=== PATIENT | female | born 1965 | race Caucasian/White ===

== ENCOUNTER 2018-01-23 13:24 | Inpatient (IN) | payer OTHER ==
[~2018-01-23] VITALS: Ht 165.1 cm; Wt 74.8 kg
[2018-01-23] MEDS ORDERED: ACETAMINOPHEN 325MG TABLET PO STA (14:42)
[2018-01-23] MEDS ORDERED: SODIUM CHLORIDE 0.9% 1000ML BAG (SEPSIS BOLUS) IV ONE (14:45)
[2018-01-23] MEDS ORDERED: CEFTRIAXONE 1 G PREMIX 50 ML IV ONE (15:15)
[2018-01-23] MEDS ORDERED: ONDANSETRON HCL 4MG/2ML INJ IV ONE (15:15)
[2018-01-23] MEDS ORDERED: FENTANYL CITRATE/PF 50MCG/ML 2ML VIAL IV ONE (15:15)
[2018-01-23 15:58] LABS: HEMATOCRIT. 40.6 % (36.0-48.0); HEMOGLOBIN. 13.7 g/dL (12.0-16.0); MEAN CORPUSCULAR HEMOGLOBIN 29.3 pg (28.0-32.0); MEAN CORPUSCULAR VOLUME 86.8 fL (81.0-99.0); MEAN PLATELET VOLUME 8.1 fl (7.4-10.4); PLATELET 202 x1000/uL (130-400); RED BLOOD CELL COUNT 4.68 mill/uL (4.2-5.4); RED CELL DISTRIBUTION WIDTH 13.4 % (11.6-14.6)
[2018-01-23 16:03] LABS: CHLORIDE 95 mEq/L (98-107)
[2018-01-23 16:10] LABS: INR 1.1; PARTIAL THROMBOPLASTIN TIME 40.8 sec (23.4-31.0); PROTHROMBIN TIME 11.4 sec (9.1-11.1)
[2018-01-23 16:17] LABS: PLATELET ESTIMATE NORMAL
[2018-01-23 16:25] LABS: CLARITY URINE TURBID (CLEAR); COLOR URINE ORANGE (YELLOW); KETONES URINE 3+ (NEGATIVE); LEUKOCYTE ESTERASE URINE 2+ (NEGATIVE); NITRITE URINE NEGATIVE (NEGATIVE); OCCULT BLOOD URINE 3+ (NEGATIVE); PROTEIN URINE 3+ (NEGATIVE); SPECIFIC GRAVITY URINE 1.022 (1.005-1.030)
[2018-01-23] MEDS ORDERED: POTASSIUM CHLORIDE 20MEQ TABLET SR PO ONE (17:00)
[2018-01-23 23:00] VITALS: BP 114/66
[2018-01-24] MEDS ORDERED: LEVO50TA8 PO (00:47)
[2018-01-24 06:10] LABS: HEMATOCRIT. 35.3 % (36.0-48.0); MEAN CORPUSCULAR HEMOGLOBIN 29.4 pg (28.0-32.0); MEAN CORPUSCULAR VOLUME 86.3 fL (81.0-99.0); MEAN PLATELET VOLUME 8.6 fl (7.4-10.4); PLATELET 182 x1000/uL (130-400); RED CELL DISTRIBUTION WIDTH 13.8 % (11.6-14.6)
[2018-01-24] MEDS: LEVOTHYROXINE SODIUM 50MCG TABLET PO SCH (06:32)
[2018-01-24 07:13] LABS: CHLORIDE 100 mEq/L (98-107)
[2018-01-24] MEDS: ACETAMINOPHEN 325MG TABLET PO PRN ×2 (07:25→17:08)
[2018-01-24 08:00] VITALS: BP 115/68
[2018-01-24] MEDS ORDERED: SODIUM CHLORIDE 0.9% 1,000 ML IV SCH (08:00)
[2018-01-24] MEDS ORDERED: POTASSIUM CHLORIDE 20MEQ TABLET SR PO SCH (08:00)
[2018-01-24] MEDS: ENOXAPARIN 40MG/0.4ML SYR SUBCUT SCH (08:46)
[2018-01-24 12:00] VITALS: BP 105/63
[2018-01-24 14:41] LABS: PLATELET ESTIMATE NORMAL
[2018-01-24] MEDS ORDERED: KETOROLAC 60MG/2ML VIAL IM PRN (15:00)
[2018-01-24] MEDS: DEXT 5%/0.45% NACL 1000ML 1,000 ML IV SCH ×2 (15:51→23:00)
[2018-01-24 16:00] VITALS: BP 113/65
[2018-01-24] MEDS: CEFTRIAXONE 1 G PREMIX 50 ML IV SCH (17:08)
[2018-01-25] VITALS: BP 120/66
[2018-01-25 04:00] VITALS: BP 118/68
[2018-01-25 06:29] LABS: BASOPHILS % 0.2 % (0.0-2.0); EOSINOPHILS % 0.1 % (0.0-5.0); HEMATOCRIT. 33.2 % (36.0-48.0); HEMOGLOBIN. 11.4 g/dL (12.0-16.0); LYMPHOCYTES % 9.2 % (20.0-50.0); MEAN CORPUSCULAR HEMOGLOBIN 29.5 pg (28.0-32.0); MEAN CORPUSCULAR VOLUME 86.3 fL (81.0-99.0); MEAN PLATELET VOLUME 7.8 fl (7.4-10.4); MONOCYTES % 12.7 % (2.0-8.0); NEUTROPHILS % 77.8 % (40.0-76.0); PLATELET 175 x1000/uL (130-400); RED BLOOD CELL COUNT 3.85 mill/uL (4.2-5.4); RED CELL DISTRIBUTION WIDTH 13.7 % (11.6-14.6)
[2018-01-25] MEDS: LEVOTHYROXINE SODIUM 50MCG TABLET PO SCH (07:35)
[2018-01-25] MEDS: DEXT 5%/0.45% NACL 1000ML 1,000 ML IV SCH ×2 (07:35→14:34)
[2018-01-25 08:00] VITALS: BP 123/71
[2018-01-25] MEDS ORDERED: INFLUENZA VIRUS VACCINE(AFLURIA) 0.5ML SYR IM ONE (09:00)
[2018-01-25 10:27] LABS: CHLORIDE 101 mEq/L (98-107)
[2018-01-25] MEDS: ENOXAPARIN 40MG/0.4ML SYR SUBCUT SCH (11:25)
[2018-01-25] MEDS: ACETAMINOPHEN 325MG TABLET PO PRN ×2 (11:26→19:52)
[2018-01-25 12:00] VITALS: BP 112/66
[2018-01-25 16:00] VITALS: BP 108/69
[2018-01-25] MEDS ORDERED: POTASSIUM CHLORIDE 20MEQ TABLET SR PO NR (16:30)
[2018-01-25] MEDS: CEFTRIAXONE 1 G PREMIX 50 ML IV SCH (16:40)
[2018-01-25 20:00] VITALS: BP 126/69
[2018-01-25 20:41] LABS: BASOPHILS % 0.3 % (0.0-2.0); EOSINOPHILS % 0.5 % (0.0-5.0); HEMATOCRIT. 33.9 % (36.0-48.0); HEMOGLOBIN. 11.3 g/dL (12.0-16.0); LYMPHOCYTES % 12.4 % (20.0-50.0); MEAN CORPUSCULAR HEMOGLOBIN 29.2 pg (28.0-32.0); MEAN CORPUSCULAR VOLUME 87.1 fL (81.0-99.0); MEAN PLATELET VOLUME 7.6 fl (7.4-10.4); MONOCYTES % 12.2 % (2.0-8.0); NEUTROPHILS % 74.6 % (40.0-76.0); PLATELET 197 x1000/uL (130-400); RED BLOOD CELL COUNT 3.89 mill/uL (4.2-5.4); RED CELL DISTRIBUTION WIDTH 13.6 % (11.6-14.6)
[2018-01-26] VITALS (7 sets, daily range): BP systolic 111–122; BP diastolic 66–75
[2018-01-26] MEDS: LEVOTHYROXINE SODIUM 50MCG TABLET PO SCH (05:39)
[2018-01-26 06:06] LABS: CHLORIDE 100 mEq/L (98-107)
[2018-01-26] MEDS: ENOXAPARIN 40MG/0.4ML SYR SUBCUT SCH (08:45)
[2018-01-26] MEDS: CEFTRIAXONE 1 G PREMIX 50 ML IV SCH (16:17)
== END 2018-01-26 20:30 | disposition home or self-care (01) | DRG 720 ==
LOC: ER 13:24 → EDBEDREQ 16:34 → 6EST 17:31 → EDBEDREQTM 17:37 → EDBEDREQ 17:37 → EDBEDREQTM 17:51 → EDBEDREQ 17:51 → ENRESERV 19:57
PROVIDERS: ADMIT Internal Medicine; ATTEND Internal Medicine
DX: A41.9 Sepsis, unspecified organism (principal); E87.8 Other disorders of electrolyte and fluid balance, not elsewhere classified; E44.1 Mild protein-calorie malnutrition; E83.51 Hypocalcemia; E87.1 Hypo-osmolality and hyponatremia; N10 Acute pyelonephritis; E87.6 Hypokalemia; E78.00 Pure hypercholesterolemia, unspecified; E03.9 Hypothyroidism, unspecified; I25.10 Atherosclerotic heart disease of native coronary artery without angina pectoris; E11.9 Type 2 diabetes mellitus without complications; Z90.49 Acquired absence of other specified parts of digestive tract; Z87.891 Personal history of nicotine dependence
CPT/HCPCS: 36415; 71045; 74176; 80048; 83605; 84145; 84484; 87077; 87186; 90686; 93005; 96365; 96366; 96375; 99291; J0696; J1650; J2405; J3010; J3490; J7030